=== PATIENT | female | born 1995 | race Caucasian/White ===

== ENCOUNTER 2018-08-06 17:16 | Emergency (ER) | payer OTHER ==
[2018-08-06] MEDS ORDERED: BIRTH CONTROL (17:29)
[2018-08-06] MEDS ORDERED: AMIT-104 PO (17:29)
[2018-08-06] MEDS ORDERED: ONDANSETRON 4 MG ODT TABDP SL ONE (17:45)
--- NOTE | 2018-08-06 18:00 | ER Report ---
History and Physical Time Seen By MD: 17:51 Hx. of Stated Complaint: FELL DOWN STAIRS (CHERRI TEMPLE MD) HPI/ROS CHIEF COMPLAINT: Fall, headache, neck pain, back pain and the pain HISTORY OF PRESENT ILLNESS: Patient is a 22-year-old female who presents emergency department after a fall down steps fall at [facility]. She states that at the top of the stairs it was wet slick and she fell down approximately one flight of stairs. She did hit her head without loss of consciousness. She is complaining of headache and worsening migraine she is also complaining of some midline neck pain along with right-sided pain and upper thoracic back pain. She denies any focal neurological symptoms. She denies fevers or chills. She was feeling well prior to the injury. REVIEW OF SYSTEMS: Constitutional: No fever, no chills. Eyes: No discharge. ENT: No sore throat. Cardiovascular: No chest pain, no palpitations. Respiratory: No cough, no shortness of breath. Gastrointestinal: No abdominal pain, no vomiting. Genitourinary: No hematuria. Musculoskeletal: Thoracic back pain, neck pain Skin: No rashes. Neurological: Headache (CHERRI TEMPLE MD) Home Meds Reported Medications [ Control] No Conflict Check 08/06/18 Amitriptyline Hcl (AMITRIPTYLINE HCL) 10 Mg Tablet, 10 MG PO QHS, #5 TAB 08/06/18 Past Medical/Surgical History Noncontributory towards this chief complaint (CHERRI TEMPLE MD) Constitutional Vital Sign - Last 24 Hours 08/06/18 08/06/18 08/06/18 08/06/18 17:24 17:29 17:31 17:46 Temp 97.9 Pulse 94 97 90 Resp 16 B/P (MAP) 120/85 (97) 120/85 Pulse Ox 97 98 93 08/06/18 08/06/18 08/06/18 08/06/18 18:01 18:46 18:58 19:01 Pulse 91 92 94 B/P (MAP) 109/70 (83) Pulse Ox 92 93 93 08/06/18 08/06/18 19:06 19:21 Pulse 94 95 Pulse Ox 93 99 (PAUL GAMBOA MD) Physical Exam General Appearance: The patient is alert, has no immediate need for airway protection and no signs of toxicity. Eyes: Pupils equal and round no pallor or injection. ENT, Mouth: Mucous membranes are moist. Midline neck pain, no step offs Respiratory: There are no retractions, lungs are clear to auscultation. Cardiovascular: Regular rate and rhythm. Gastrointestinal: Abdomen is soft and non tender, no masses, bowel sounds normal. Neurological: Awake and alert, GCS 15 Skin: Warm and dry, no rashes. Musculoskeletal: Neck is supple non tender. Extremities are nontender, nonswollen and have full range of motion. (CHERRI TMEPLE MD) Medical Decision Making EKG/Imaging Imaging CT obtained: Head and cervical spine. Results: normal. The study was read by the radiologist and I reviewed their report. X-ray: Chest, ribs, thoracic spine was obtained. I viewed the images myself on the PACS system. My interpretation of the images is: Negative. Reviewed radiology report. (PAUL GAMBOA MD) ED Course/Re-evaluation ED Course 08/06/2018 5:56:20 pm and at this time will be CT of the head, C-spine we will x-ray the right ribs along with thoracic spine. (CHERRI TEMPLE MD) ED Course Discussed this patient with Dr. Temple at shift change and assumed care of the patient. CT and x-rays came back showing no acute problems. Reviewed this with the patient. She has had a concussion in the past and feels like she is having the same symptoms. Reviewed typical treatment for concussion. Recommended Tylenol for headache, provided a take home pack of Percocet and Zofran tablet pain and nausea. Also gave her a note to be off school tomorrow and asked professors to give consideration for upcoming exams given her concussion. Decision to Disposition Date: Aug 06, 2018 Decision to Disposition Time: 19:21 (PAUL GAMBOA MD) Depart Departure Latest Vital Signs Vital Signs Date Time Temp Pulse Resp B/P (MAP) Pulse Ox O2 Delivery O2 Flow Rate FiO2 08/06/18 19:21 95 99 08/06/18 18:58 109/70 (83) 08/06/18 17:29 97.9 16 (PAUL GAMBOA MD) Impression: Primary Impression: Concussion Condition: Improved Disposition: HOME OR SELF-CARE Patient Instructions: Concussion (ED) Additional Instructions: Concussion symptoms include: headache, nausea/vomiting, dizziness, difficulty concentrating, blurred vision. These symptoms can be mild or moderate. If symptoms become severe, follow-up evaluation is needed. Avoid any heavy physical activity and avoid any activities that may cause repeat head injury. Concussion symptoms can last for days or weeks. There is no way to predict how long these will last. It is okay to sleep after a head injury. Take Tylenol as needed for pain. Do not take any medicines containing aspirin until symptoms resolve Problem Qualifiers Primary Impression: Concussion Encounter type: initial encounter Loss of consciousness presence/duration: without LOC Qualified Codes: S06.0X0A - Concussion without loss of consciousness, initial encounter CHERRI TEMPLE MD Aug 06, 2018 18:00 PAUL GAMBOA MD Aug 06, 2018 18:14
--- NOTE | 2018-08-06 18:55 | RADIOLOGY IMAGING REPORT ---
FACILITY: [facility] - [place] PATIENT NAME: Inna Isaacs : 1995 MR: [id number] V: [id number] EXAM DATE: ORDERING PHYSICIAN: CHERRI CRISTOBAL TECHNOLOGIST: Location: [facility] - [place] Patient: Inna Isaacs : 1995 Visit/Account:[id number] Date of Sevice: 08/06/2018 CT BRAIN NO CONTRAST HISTORY: fall COMPARISON STUDIES: None. TECHNIQUE: Contiguous axial images were obtained from the skull base to the vertex. One of the following dose optimization techniques was utilized in the performance of this exam: Autom ated exposure control; adjustment of the mA and/or kV according to the patient's size; or use of an i terative reconstruction technique. Specific details can be referenced in the facility's radiology C T exam operational policy. FINDINGS: Hemorrhage: There is no intraparenchymal or extra-axial bleed. Ventricles / sulci / fissures: There is a cavum septum lucidum with the cavum variegated. This repre sents a normal anatomic variant. There is no hydrocephalus. Masses / midline shift: Negative White matter and lomeli matter: White matter is unremarkable. Extra-axial spaces: Negative Bones/skull base: No findings of a skull fracture. Visualized mastoid air cells / paranasal sinuses: This paranasal sinuses so far as visualized are unr emarkable. Scalp and soft tissues: There is no scalp hematoma. Vascular/other findings: Negative IMPRESSION: Normal non-contrast head CT without findings of a mass, bleed, or site of acute infarction. Report Dictated By: Satinder Whitaker MD at 08/06/2018 6:48 PM Report E-Signed By: Satinder hWitaker MD at 08/06/2018 6:50 PM WSN:[email or web address]
--- NOTE | 2018-08-06 18:56 | RADIOLOGY IMAGING REPORT ---
FACILITY: [facility] PATIENT NAME: Inna Isaacs : 1995 MR: [id number] V: [id number] EXAM DATE: ORDERING PHYSICIAN: CHERRI CRISTOBAL TECHNOLOGIST: Location: [facility] - [place] Patient: Inna Isaacs : 1995 Visit/Account:[id number] Date of Sevice: 08/06/2018 CHEST PA LAT Additional pertinent History: Fell down stairs COMPARISON STUDIES: none FINDINGS: Support lines and catheters: None Lungs and Pleura: No pneumothorax. No lung contusion. Heart and vasculature: Negative. Hilda and Mediastinum: Negative. Bones and Chest wall: Thoracic vertebral bodies well-maintained. No compression changes. No rib fr actures identified. Upper Abdomen: Negative. IMPRESSION: 1. Negative chest Report Dictated By: Julio Montano MD at 08/06/2018 6:51 PM Report E-Signed By: Julio Montano MD at 08/06/2018 6:53 PM WSN:[email or web address]
--- NOTE | 2018-08-06 18:57 | RADIOLOGY IMAGING REPORT ---
FACILITY: [facility] PATIENT NAME: Inna Isaacs : 1995 MR: [id number] V: [id number] EXAM DATE: ORDERING PHYSICIAN: CHERRI CRISTOBAL TECHNOLOGIST: Location: [facility] Patient: Inna Isaacs : 1995 Visit/Account:[id number] Date of Sevice: 08/06/2018 CT VERTEBRA CERVICAL (NON CON) EXAMINATION: CT Cervical spine without intravenous contrast HISTORY: 22-year-old female status post fall. COMPARISON: None. TECHNIQUE: Axial images were obtained from the skull base through the upper thoracic spine without I V contrast administration. Coronal and sagittal reformatted images were obtained from the axial [facility] e data. One of the following dose optimization techniques was utilized in the performance of this exam: Autom ated exposure control; adjustment of the mA and/or kV according to the patient's size; or use of an i terative reconstruction technique. Specific details can be referenced in the facility's radiology C T exam operational policy. FINDINGS: Alignment: The cervical spine has normal lordotic curvature. There is no fracture. Vertebral bodies: There is no vertebral body fracture. The dens is intact. Posterior elements: There is no fracture involving the posterior elements. Disc Spaces: Negative. Sinuses and face: The paranasal sinuses are unremarkable. Soft tissues: Negative. Visualized upper chest: The lung apices are unremarkable. IMPRESSION: Unremarkable cervical spine CT scan without findings of a fracture or soft tissue injury. Report Dictated By: Satinder Whitaker MD at 08/06/2018 6:51 PM Report E-Signed By: Satinder Whitaker MD at 08/06/2018 6:54 PM WSN:[email or web address]
[2018-08-06 18:58] VITALS: BP 109/70
--- NOTE | 2018-08-06 18:58 | RADIOLOGY IMAGING REPORT ---
FACILITY: [facility] PATIENT NAME: Inna Isaacs : 1995 MR: [id number] V: [id number] EXAM DATE: ORDERING PHYSICIAN: CHERRI CRISTOBAL TECHNOLOGIST: Location: [facility] - [place] Patient: Inna Isaacs : 1995 Visit/Account:[id number] Date of Sevice: 08/06/2018 XR THORACIC SPINE 3 V HISTORY: fall AP and lateral thoracic spine films. FINDINGS: No acute bony pathology. Vertebral bodies are well maintained with respect to height and alignment. Very slight scoliotic curvature of the thoracic spine maximally convex to the right at the T C7 leve l. Posterior elements well-maintained and aligned. IMPRESSION: 1. Negative thoracic spine Report Dictated By: Julio Montano MD at 08/06/2018 6:53 PM Report E-Signed By: Julio Montano MD at 08/06/2018 6:54 PM WSN:[email or web address]
--- NOTE | 2018-08-06 19:08 | RADIOLOGY IMAGING REPORT ---
FACILITY: [facility] - [place] PATIENT NAME: Inna Isaacs : 1995 MR: [id number] V: [id number] EXAM DATE: ORDERING PHYSICIAN: CHERRI CRISTOBAL TECHNOLOGIST: Location: Patient: Inna Isaacs : 1995 Visit/Account:[id number] Date of Sevice: 08/06/2018 RIBS RIGHT HISTORY: fall Three-view examination of the ribs. FINDINGS: Right rib detail views demonstrates no rib fractures. No pneumothorax. IMPRESSION: 1. Negative right rib detail views. Report Dictated By: Julio Montano MD at 08/06/2018 6:58 PM Report E-Signed By: Julio Montano MD at 08/06/2018 7:04 PM WSN:[email or web address]
[2018-08-06] MEDS ORDERED: oxyCODONE/ACETAMIN 5/325MG TH 2 TAB/BOTTLE PO ONE (19:30)
[2018-08-06] MEDS ORDERED: ONDANSETRON 4 MG ODT TH SL ONE (19:30)
== END 2018-08-06 19:32 | disposition home or self-care (01) ==
LOC: ER 17:47
DX: S06.0X0A Concussion without loss of consciousness, initial encounter (principal)
CPT/HCPCS: 70450; 71046; 71100; 72072; 72125; 99284; S0119